=== PATIENT | male | born 1990 | race Caucasian/White ===

== ENCOUNTER 2017-02-12 07:59 | Inpatient (IN) | payer BC, OTHER ==
[~2017-02-12] VITALS: Ht 188 cm; Wt 153.3 kg
--- NOTE | 2017-02-12 18:14 | NUR ---
INTAKE ASSESSMENT 26 year old male. Patient is alert and orientated time 4, stable and able to ambulate. Vital signs are BP 179/96 HR 73 TEMP 96.5f R 18. Patient states he has no allergies. Patient takes no medications at home, no medications brought with him to treatment. No history of seizure, patient has fallen often in the past when intoxicated. patient consumed ETOH and Cocaine today around 1400. Patient able to answer questions appropriately. He states, "he want to be a better person and ready for detox". This is his first time in a treatment center. Addendum: 02/12/17 at 1832 by ALMA SHELTON RN Patient states he is here to detox from: 1. ETOH 2. cocaine 3. marijuana 4. xanax 5. Lorazepam 6. Diazepam
[2017-02-12 18:23] VITALS: BP 179/96
--- NOTE | 2017-02-12 19:00 | NUR ---
ADMISSION NOTE : Patient is a 26 year old male admitted on 02/12/17 at 1900 for ETOH, Benzodiazepines, and Opiate Dependency. Patient is a Full Code, is NKA, is on Regular diet, is on Fall and Seizures Precautions. Patient reports History of Falls "two weeks ago". Patient does not have Primary Care Provider. Weight: 338 Lbs, Height: 6'2, CIWA 12, COWS 11. Patient complains of increased level of anxiety, agitation, nervousness, visible hands tremor, body ache, muscle spasm, flashes. Patient was able to provide Urine Drug Screening Test (positive for cocaine and cannabinoids) see chart for result. Patient refused History of Seizures. Upon admission BP:1 65/111, HR: 87, T: 98.3, RA SpO2: 100%, RR:19, respirations is even and unlabored; Lung Sounds are clear bilaterally. Bowel Sounds is active in all 4 quadrants. Last BM was on 02/12/17. Skin is intact, warm and dry at touch. Patient reports suicidal attempt history. No SI/HI at this moment. Substance Abuse History is as follow : 1. ETOH "Whisky during last 10 years, since 2006, drinking every day: 3 gallons a week. Last time drank of 750 ml of Whisky on 02/12/17 at 1410". 2. Xanax " PO 1 bar Three Times a Week uses during one year". 3. Lorazepam "PO 0.5 mg x4 or 2 mg Every Day during one year". 4. Diazepam "PO 5 mg Every Day during one year". 5. Cocaine "nares and sometimes smoke 5 lines Every Day during 3 years. Last dose taken 5 lines on 02/12/17 at 1300". 6. Marijuana "Smoke 2,5 grams every day during last 10 years. Last time smoked 1 grams on 02/12/17". Patient denies history of smoking. Past Medical History : HTN, Anxiety, Depression, Substance abuse. Tx History : Patient report that he is "first time at Detox now". "Boss helped to me to get to [facility]". Family History: Patient reports that his father is alcoholic. Doctor Madhu Stone MD aware for patient's condition. Waiting MD's Order. Patient is oriented to her room and unit, education provided on Hepatitis C, Substance abuse, Falls and Seizures. Patient did not brought his home medications. Safety measures in place. Call light within reach, bed is locked and is on lowest position with padded side rails x2. Will continue to monitor closely and offer help. Addendum: 02/13/17 at 0328 by WALLY TAVERA RN Patient has NKA, is on Regular Diet, and is Full Code status. Patient is on Seizure and Fall Precautions. Addendum: 02/13/17 at 0547 by WALLY TAVERA RN Patient reports suicidal attempt history 5 years ago. No SI/HI at this moment.
[2017-02-12 20:00] VITALS: BP 162/115
[2017-02-12] MEDS ORDERED: THIAMINE HCL 200 MG/2 ML VIAL IM ONE (21:00)
[2017-02-12] MEDS ORDERED: ONDANSETRON ODT 4 MG TAB.RAPDIS SL PRN (21:00)
[2017-02-12] MEDS ORDERED: LOPERAMIDE HCL 2 MG CAPSULE PO PRN ×2 (21:00)
[2017-02-12] MEDS ORDERED: MIRALAX 17 GM POWD.PACK PO PRN (21:00)
[2017-02-12] MEDS ORDERED: MAGNESIUM HYDROXIDE 30 ML LIQUID UDC PO PRN (21:00)
[2017-02-12] MEDS ORDERED: ACETAMINOPHEN 325 MG TABLET PO PRN (21:00)
[2017-02-12] MEDS ORDERED: LORAZEPAM 2 MG/1 ML VIAL IM PRN (21:00)
[2017-02-12] MEDS ORDERED: LORAZEPAM 1 MG TABLET PO PRN ×2 (21:00)
[2017-02-12] MEDS ORDERED: PROMETHAZINE HCL 25 MG/1 ML VIAL IM PRN (21:00)
[2017-02-12] MEDS ORDERED: IBUPROFEN 400 MG TABLET PO PRN (21:00)
[2017-02-12] MEDS ORDERED: MAG HYDROX/AL HYDROX/SIMETH 30 ML LIQUID UDC PO PRN (21:00)
[2017-02-12] MEDS ORDERED: DICYCLOMINE HCL 20 MG TABLET PO PRN (21:00)
[2017-02-12] MEDS ORDERED: diphenhydrAMINE 50 MG CAPSULE PO PRN (21:00)
[2017-02-12 21:08] LABS: *AMPHETAMINE, URINE NEGATIVE (NEGATIVE); *BARBITURATE, URINE NEGATIVE (NEGATIVE); *CANNABINOID, URINE POSITIVE (NEGATIVE); *COCCAINE, URINE POSITIVE (NEGATIVE); *OPIATE, URINE NEGATIVE (NEGATIVE); *PHENCYCLIDINE SCREEN,URINE NEGATIVE (NEGATIVE)
[2017-02-12] MEDS: CLONIDINE HCL 0.1 MG TABLET PO PRN (21:31)
--- NOTE | 2017-02-12 21:32 | NUR ---
PRN ATIVAN 1 MG 1 TAB PO, PRN BENADRYL 50 MG 1 TAB PO, PRN CLONIDINE 0,1 MG PO ADMINISTRATION Patient c/o increased anxiety, tremors, and insomnia. Assessment done. BP:165/116, HR: 95, RR:20; RA O2 SAT 100%. Generalized, body aches Pain level "6/10". CIWA 12, COWS 11. Patient complains of increased level of anxiety, agitation, nervousness, visible hands tremor, body ache, muscle spasm, flashes. PRN Ativan 1 mg 1 tab PO, PRN Benadryl 50 mg 1 tab PO, and PRN Clonidine 0.1 mg 1 tab PO administrated as ordered with full glass of water. Patient tolerated well. Safety measures in place. Call light within reach, bed is locked and is on lowest position with padded side rails x2 . Will continue to monitor closely and offer help. Addendum: 02/13/17 at 0508 by WALLY TAVERA RN PRN Benadryl 50 mg 1 caps PO.
[2017-02-12] MEDS ORDERED: CLONIDINE HCL 0.1 MG TABLET ONE (21:37)
[2017-02-12] MEDS ORDERED: THIAMINE HCL 200 MG/2 ML VIAL ONE (21:37)
[2017-02-12] MEDS ORDERED: LORAZEPAM 1 MG TABLET ONE (21:38)
[2017-02-12] MEDS ORDERED: diphenhydrAMINE 50 MG CAPSULE ONE (21:38)
--- NOTE | 2017-02-12 22:32 | NUR ---
RE-ASSESSMENT Patient is lying down in the bed with eyes closed. BP: 139/89, HR: 87, RR 17. PRN Medications were effective. Safety measures in place. Call light within reach, bed is locked and is on lowest position with padded side rails x2 . Will continue to monitor closely and offer help.
[2017-02-12 23:30] LABS: BASOPHILS % (AUTO) 0.5 % (0.0-2.0); EOSINOPHILS # (AUTO) 0.1 K/uL (0.0-0.7); EOSINOPHILS % (AUTO) 1.6 % (0.0-7.0); HEMATOCRIT 44.4 % (40-50); HEMOGLOBIN 15.4 G/DL (14.0-18.0); LYMPHOCYTES # (AUTO) 2.3 K/UL (0.8-4.8); LYMPHOCYTES % (AUTO) 25.8 % (20.5-51.5); MEAN CORPUSCULAR HEMOGLOBIN 31.3 UUG (27.0-31.0); MEAN CORPUSCULAR HGB CONC 35 g/dL (32.0-37.0); MEAN CORPUSCULAR VOLUME 90.1 FL (82.0-92.0); MONOCYTES # (AUTO) 0.6 K/UL (0.1-1.30); NEUTROPHILS # (AUTO) 6.1 K/UL (1.8-8.9); NEUTROPHILS % (AUTO) 65.1 % (38.5-71.5); PLATELET COUNT (AUTO) 224 K/UL (150-450); RED BLOOD CELL COUNT(AUTO) 4.93 MIL/UL (4.7-6.1); WHITE BLOOD COUNT (AUTO) 9.1 K/UL (4.0-11.2)
[2017-02-12 23:32] LABS: ETHANOL < 3 MG/DL (0-0)
[2017-02-12 23:34] LABS: ALANINE AMINOTRANSFERASE 81 U/L (16-63); ALKALINE PHOSPHATASE 76 U/L (50-136); AMYLASE 58 U/L (25-115); ASPARTATE AMINOTRANSFERASE 36 U/L (15-37); BILIRUBIN,TOTAL 0.4 mg/dL (0.2-1.0); CARBON DIOXIDE 29 mmol/L (21-32); CHLORIDE 103 mmol/L (98-107); GLUCOSE 99 mg/dL (74-106); LIPASE 98 U/L (73-393); MAGNESIUM 1.9 mg/dL (1.8-2.4); POTASSIUM 3.7 mmol/L (3.5-5.1); TOTAL PROTEIN, SERUM 7.3 g/dL (6.4-8.2); UREA NITROGEN, BLOOD 14 mg/dL (7-18)
[2017-02-12 23:45] LABS: THYROID STIMULATING HORMONE 1.963 mIU/mL (0.358-3.740)
[2017-02-13] VITALS: BP 126/80
[2017-02-13 04:00] VITALS: BP 130/73
--- NOTE | 2017-02-13 07:30 | NUR ---
Start of shift note; Patient is AOX4. Patient is a 26 year male admitted on 02/12/17 for ETOH and Benzo dependence. Patient reported history of anxiety, depression, HTN. Patient to start 5 day Ativan taper today. NKA, regular diet and on full code status. Patient is on fall and seizure precaution. Bed in lowest position, tawnya light within reach. Will continue to monitor patient.
--- NOTE | 2017-02-13 07:31 | NUR ---
END OF SHIFT NOTE : Patient is a 26 year old male admitted on 02/12/17 at 1900 for ETOH, Benzodiazepines, and Opioid dependency. Patient has NKA, is on Regular Diet, and is Full Code status. Patient is on Seizure and Fall Precautions. Patient denies History of Seizures. Patient reports History of Falls "two weeks ago". Patient reports suicidal attempt history 5 years ago. No SI/HI at this moment. Last CIWA at 0400 decreased from 5 to 3. 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 Urine Drug Screening Test (positive for cocaine and cannabinoids) see chart for result. Patient refused History of Seizures. Last VS at 0400: BP: 130/73, HR: 60, T: 97.5, RA SpO2: 95%, RR:16. Pain level "0/10". Respirations is even and unlabored. Skin is intact, warm and dry at touch. PRN Ativan 1 mg 1 tab PO, PRN Benadryl 50 mg 1 caps PO, and PRN Clonidine 0.1 mg 1 tab PO, administrated last caustic cresylate shift superintendent were effective. Patient slept 7 hours 15 minutes, intake 700 ml, voided x1. Patient remains compliant with treatment plan, medications, and diet regimen. Patient's educated of relaxation skills. Encourage to fluids intake, as tolerated. Encourage to attend activities and therapy groups regularly. All needs met. Safety measures in the place. Call light within reach, bed in the lowest position, and locked, padded bed rails up x2. Will continue to monitor closely.
[2017-02-13 08:00] VITALS: BP 124/79
[2017-02-13] MEDS: MULTIVITAMINS,THERAPEUTIC TABLET PO SCH (08:26)
[2017-02-13] MEDS: THIAMINE HCL 100 MG TABLET PO SCH (08:26)
[2017-02-13] MEDS: LORAZEPAM 1 MG TABLET PO SCH ×4 (08:26→20:59)
[2017-02-13] MEDS: FOLIC ACID 1 MG TABLET PO SCH (08:26)
[2017-02-13] MEDS ORDERED: TUBERCULIN,PURIF.PROT.DERIV. 5 TU/0.1 ML TEST ID ONE (09:00)
[2017-02-13] MEDS: GABAPENTIN 100 MG CAPSULE PO SCH ×3 (09:30→17:14)
[2017-02-13 12:00] VITALS: BP 133/73
[2017-02-13 16:00] VITALS: BP 123/68
--- NOTE | 2017-02-13 18:19 | NUR ---
End of shift note; Patient is AOX4. Patient is a 26 year male admitted on 02/12/17 for ETOH and Benzo dependence. Patient reported history of anxiety, depression, HTN. Patient to start 5 day Ativan taper today. NKA, regular diet and on full code status. Patient's last CIWA score is 5. Patient is on fall and seizure precaution. Patient remained compliant with treatment plan. Medications were effective in reducing withdrawal symptoms. Bed in lowest position, tawnya light within reach. Met all needs.
--- NOTE | 2017-02-13 19:15 | NUR ---
START OF SHIFT NOTE : Patient is a 26 year old male admitted on 02/12/17 at 1900 for ETOH, Benzodiazepines, and Opioid dependency. Patient has NKA, is on Regular Diet, and is Full Code status. Patient is on Seizure and Fall Precautions. Patient denies History of Seizures. Patient reports suicidal attempt history 5 years ago. No SI/HI at this moment. Last CIWA=5 at 16:00 . Patient presented with the following withdrawal s/s: anxiety, nervousness, body ache 2/10. Respirations is even and unlabored. Skin is intact, warm and dry at touch. Patient remains compliant with treatment plan, medications, and diet regimen. Patient's educated of relaxation skills. Encourage to fluids intake, as tolerated. Encourage to attend activities and therapy groups regularly. All needs met. Safety measures in the place. Call light within reach, bed in the lowest position, and locked, padded bed rails up x2. Will continue to monitor closely.
[2017-02-13 20:00] VITALS: BP 139/85
--- NOTE | 2017-02-14 06:38 | NUR ---
END OF SHIFT NOTE : Patient is a 26 year old male admitted on 02/12/17 at 1900 for ETOH, Benzodiazepines, and Opioid dependency. Patient has NKA, is on Regular Diet, and is Full Code status. Patient is on Seizure and Fall Precautions. Patient denies History of Seizures. Patient reports suicidal attempt history 5 years ago. No SI/HI at this moment. Skin is intact, warm and dry at touch. Patient's educated of relaxation skills. Encourage to fluids intake, as tolerated. Encourage to attend activities and therapy groups regularly. Pt remains compliant with the treatment plan. No PRNs were given during my shift. V/S remain WNL. RR=16, even and unlabored, lungs clear upon auscultation, abdomen soft and non- distended. Pt denies nausea, vomiting and diarrhea. LAST CIWA=3 at 0400 , VZMMSO=830 ml, voided x 2, slept 5 hours. All needs met. Safety measures in the place. Call light within reach, bed in the lowest position, and locked, padded bed rails up x2. Will continue to monitor closely.
[2017-02-14 08:00] VITALS: BP 143/82
--- NOTE | 2017-02-14 08:05 | NUR ---
START OF SHIFT: RECEIVED PT A/O X 4. HE PRESENTS WITH GUARDED AFFECT AND ANXIOUS MOOD. HE REPORTS SOME ANXIETY. CIWA 2. ATIVAN TAPER IN PROGRESS. PT STATES HE WILL BE ATTENDING GROUPS TODAY. ENCOURAGED INCREASED FLUIDS TO ASSIST IN FACILITATING DETOX PROCESS. WILL CONTINUE TO MONITOR AND OFFER SUPPORT.
[2017-02-14] MEDS: THIAMINE HCL 100 MG TABLET PO SCH (09:53)
[2017-02-14] MEDS: FOLIC ACID 1 MG TABLET PO SCH (09:53)
[2017-02-14] MEDS: LORAZEPAM 1 MG TABLET PO SCH ×3 (09:53→21:11)
[2017-02-14] MEDS: MULTIVITAMINS,THERAPEUTIC TABLET PO SCH (09:53)
[2017-02-14] MEDS: GABAPENTIN 100 MG CAPSULE PO SCH ×3 (09:54→17:30)
[2017-02-14 11:07] LABS: HEPATITIS B SURFACE AG Negative (Negative)
[2017-02-14 12:00] VITALS: BP 132/79
[2017-02-14 16:00] VITALS: BP 148/90
--- NOTE | 2017-02-14 18:31 | NUR ---
END OF SHIFT: PT CONTINUES ON ATIVAN TAPER. LAST CIWA 2. HE ATTENDED GROUPS AND ACTIVITIES. HE STATES THE DETOX MEDS ARE EFFECTIVE AND HE DID NOT RECEIVE PRNS TODAY. HE WAS COMPLIANT WITH INCREASED FLUIDS AND WAS PLEASANT AND COOPERATIVE. WILL PASS SHIFT REPORT TO ONCOMING NIGHT NURSE.
--- NOTE | 2017-02-14 19:15 | NUR ---
START OF SHIFT NOTE : Patient is a 26 year old male admitted on 02/12/17 at 1900 for ETOH, Benzodiazepines, and Opioid dependency. Patient has NKA, is on Regular Diet, and is Full Code status. Patient is on Seizure and Fall Precautions. Patient denies History of Seizures. Patient reports suicidal attempt history 5 years ago. No SI/HI at this moment. Patient presented with the following withdrawal s/s: anxiety, nervousness. Respirations is even and unlabored. Skin is intact, warm and dry at touch. Patient remains compliant with treatment plan, medications, and diet regimen. Patient's educated of relaxation skills. Encourage to fluids intake, as tolerated. Encourage to attend activities and therapy groups regularly. All needs met. Safety measures in the place. Call light within reach, bed in the lowest position, and locked, padded bed rails up x2. Will continue to monitor closely.
[2017-02-14 20:00] VITALS: BP 157/92
--- NOTE | 2017-02-15 06:42 | NUR ---
END OF SHIFT NOTE : Patient is a 26 year old male admitted on 02/12/17 at 1900 for ETOH, Benzodiazepines, and Opioid dependency. Patient has NKA, is on Regular Diet, and is Full Code status. Patient is on Seizure and Fall Precautions. Patient denies History of Seizures. Patient reports suicidal attempt history 5 years ago. No SI/HI at this moment. Patient presented with the following withdrawal s/s: anxiety, nervousness. Respirations is even and unlabored. Skin is intact, warm and dry at touch. Patient remains compliant with treatment plan, medications, and diet regimen. Encourage to fluids intake, as tolerated Pt remains compliant with the treatment plan. No PRNs were given during my shift. V/S remain WNL. RR=16, even and unlabored, lungs clear upon auscultation, abdomen soft and non- distended. Pt denies nausea, vomiting and diarrhea. LAST CIWA=2 at 0400 , INTAKE=1,300 ml, voided x 2, slept 7 hours. All needs met. Safety measures in the place. Call light within reach, bed in the lowest position, and locked, padded bed rails up x2. Will continue to monitor closely.
[2017-02-15 08:00] VITALS: BP 121/55
--- NOTE | 2017-02-15 08:20 | NUR ---
START OF SHIFT: RECEIVED PT A/O X 4. HE PRESENTS WITH ANXIOUS MOOD AND CONGRUENT AFFECT. CIWA 2. ATIVAN TAPER IN PROGRESS TO MANAGE S/S OF W/D. HE C/O ANXIETY AND STATES HE JUST FEELS UNSETTLED ABOUT HIS DISCHARGE PLAN AND HIS JOB. ENCOURAGED PT TO DISCUSS CONCERNS WITH INJECTION MOLDING OPERATOR. ENCOURAGED GROUP ATTENDANCE TO IMPROVE COPING SKILLS AND PREVENT RELAPSE.
[2017-02-15] MEDS: GABAPENTIN 100 MG CAPSULE PO SCH ×3 (10:02→17:10)
[2017-02-15] MEDS: LORAZEPAM 1 MG TABLET PO SCH ×4 (10:03→20:42)
[2017-02-15] MEDS: MULTIVITAMINS,THERAPEUTIC TABLET PO SCH (10:03)
[2017-02-15] MEDS: FOLIC ACID 1 MG TABLET PO SCH (10:03)
[2017-02-15] MEDS: THIAMINE HCL 100 MG TABLET PO SCH (10:03)
[2017-02-15] MEDS ORDERED: HYDROXYZINE PAMOATE 25 MG CAPSULE PO PRN (11:45)
[2017-02-15] MEDS: CLONIDINE HCL 0.1 MG TABLET PO PRN (11:49)
[2017-02-15 12:00] VITALS: BP 133/89
--- NOTE | 2017-02-15 12:00 | NUR ---
CLONIDINE PRN ADMINISTERED FOR REPORTED RESTLESSNESS AND ANXIETY. PT STATES ANOTHER PT SAID SOME THINGS THAT TRIGGERED HIS ANGER IN GROUP. OFFERED SUPPORT. WILL MONITOR EFFECTIVENESS OF MED.
--- NOTE | 2017-02-15 13:00 | NUR ---
PT STATES THE CLONIDINE HELPED HIM AND HE FEELS BETTER.
[2017-02-15 16:00] VITALS: BP 143/93
--- NOTE | 2017-02-15 18:41 | NUR ---
END OF SHIFT: PT CONTINUES ON ATIVAN TAPER. LAST CIWA 1. HE SOME ATTENDED GROUPS AND ACTIVITIES AND BECAME ANGRY IN GROUP WHEN ANOTHER PT SAID SOMETHING TO HIM HE DIDN'T LIKE. HE WAS HITTING THE FLOOR WITH HIS FISTS IN HIS ROOM. OFFERED SUPPORT. PRN CLONIDINE GIVEN FOR RESTLESSNESS AND ANXIETY. MOTRIN GIVEN FOR PAIN TO HIS HANDS. PRNS EFFECTIVE. HE WAS COMPLIANT WITH INCREASED FLUIDS AND WAS POLITE. WILL PASS SHIFT REPORT TO ONCOMING NIGHT NURSE.
--- NOTE | 2017-02-15 19:15 | NUR ---
START OF SHIFT : Patient is a 26 year old male admitted on 02/12/17 at 1900 for ETOH, Benzodiazepines, and Opioid dependency. Patient has NKA, is on Regular Diet, and is Full Code status. Patient is on Seizure and Fall Precautions. Patient denies History of Seizures. Patient reports suicidal attempt history 5 years ago. No SI/HI at this moment. Patient presented with the following withdrawal s/s: anxiety, nervousness. Respirations is even and unlabored. Skin is intact, warm and dry at touch. Patient remains compliant with treatment plan, medications, and diet regimen. Patient's educated of relaxation skills. Encourage to fluids intake, as tolerated. Encourage to attend activities and therapy groups regularly. Pt. complains of fists pain 2/10. All needs met. Safety measures in the place. Call light within reach, bed in the lowest position, and locked, padded bed rails up x2. Will continue to monitor closely.
[2017-02-15 20:00] VITALS: BP 140/83
[2017-02-15] MEDS: CLONIDINE HCL 0.1 MG TABLET PO SCH (20:42)
--- NOTE | 2017-02-16 06:54 | NUR ---
END OF SHIFT : Patient is a 26 year old male admitted on 02/12/17 at 1900 for ETOH, Benzodiazepines, and Opioid dependency. Patient has NKA, is on Regular Diet, and is Full Code status. Patient is on Seizure and Fall Precautions. Patient denies History of Seizures. Patient reports suicidal attempt history 5 years ago. No SI/HI at this moment. Patient presented with the following withdrawal s/s: anxiety, nervousness. Respirations is even and unlabored. Skin is intact, warm and dry at touch. Patient remains compliant with treatment plan, medications, and diet regimen. Patient's educated of relaxation skills. Encourage to fluids intake, as tolerated. Encourage to attend activities and therapy groups regularly. Pt remains compliant with the treatment plan. No PRNs were given during my shift. V/S remain WNL. RR=16, even and unlabored, lungs clear upon auscultation, abdomen soft and non- distended. Pt denies nausea, vomiting and diarrhea. LAST CIWA= 1 at 0400 , INTAKE=1,650 ml, voided x 2, slept 7 hours. All needs met. Safety measures in the place. Call light within reach, bed in the lowest position, and locked, padded bed rails up x2. Will continue to monitor closely.
[2017-02-16 08:00] VITALS: BP 124/72
--- NOTE | 2017-02-16 08:15 | NUR ---
START OF SHIFT: RECEIVED PT A/O X 4. HE COMPLAINS OF SOME ANXIETY AND MILD IRRITABILITY. CIWA 1 ATIVAN TAPER IN PROGRESS. ENCOURAGED GROUP ATTENDANCE TO IMPROVE COPING SKILLS AND PREVENT RELAPSE. ENCOURAGED INCREASED FLUIDS TO ASIST IN FACILITATING DETOX PROCESS. WILL CONTINUE TO MONITOR.
[2017-02-16] MEDS: THIAMINE HCL 100 MG TABLET PO SCH (09:01)
[2017-02-16] MEDS: CLONIDINE HCL 0.1 MG TABLET PO SCH ×2 (09:01→20:39)
[2017-02-16] MEDS: LORAZEPAM 1 MG TABLET PO SCH ×3 (09:02→20:38)
[2017-02-16] MEDS: FOLIC ACID 1 MG TABLET PO SCH (09:02)
[2017-02-16] MEDS: MULTIVITAMINS,THERAPEUTIC TABLET PO SCH (09:02)
[2017-02-16] MEDS: GABAPENTIN 100 MG CAPSULE PO SCH ×2 (09:02→13:08)
[2017-02-16 12:00] VITALS: BP 122/83
--- NOTE | 2017-02-16 14:29 | NUR ---
Clinician encouraged client to attend the group at 3:30 today. Client said he would think about it.
[2017-02-16 16:00] VITALS: BP 136/83
[2017-02-16] MEDS ORDERED: GABAPENTIN 100 MG CAPSULE PO SCH (17:00)
[2017-02-16] MEDS: GABAPENTIN 300 MG CAPSULE PO SCH (17:23)
--- NOTE | 2017-02-16 18:54 | NUR ---
END OF SHIFT: PT CONTINUES ON ATIVAN TAPER. LAST CIWA 1.HE REPORTS MILD ANXIETY. HE ATTENDED GROUPS AND ACTIVITIES . HE STATED THE DETOX MEDS WERE EFFECTIVE AND NO PRNS ADMINISTERED THIS SHIFT. HE REMAINS PLEASANT AND COMPLIANT WITH TREATMENT PLAN. WILL PASS SHIFT REPORT TO ONCOMING NIGHT NURSE.
--- NOTE | 2017-02-16 19:30 | NUR ---
START OF SHIFT Patient is a 26 year old male admitted for ETOH / Benzodiazepines dependency. Patient has NKA, is on Regular Diet, and is Full Code status. Patient is on Seizure and Fall Precautions. Patient denies History of Seizures. Continues on Ativan taper as ordered. No A/R noted. Encouraged PO fluids intake, as tolerated. Last CIWA 1. All needs met. Safety measures in the place. Call light within reach, bed in the lowest position, and locked, padded bed rails up x2. Will continue to monitor closely.
[2017-02-16 20:00] VITALS: BP 135/72
--- NOTE | 2017-02-17 | NUR ---
CIWA DEFERRED AND VS REFUSED. PT IS ASLEEP. PT REQUESTED NOT TO BE WOKEN UP IF HE IS SLEEPING,HAS DIFFICULTY GOING BACK TO SLEEP. BED LOCKED AND IN LOWEST POSITION,SIDE RAILS UP X 2. CALL MOE IN REACH.WILL MONITOR.
--- NOTE | 2017-02-17 04:00 | NUR ---
CIWA DEFERRED AND VS REFUSED. PT REMAINS ASLEEP.NO S/S OD DISTRESS NOTED. BED LOCKED AND IN LOWEST POSITION,SIDE RAILS UP X 2. CALL MOE IN REACH.WILL MONITOR.
--- NOTE | 2017-02-17 06:42 | NUR ---
END OF SHIFT Patient is a 26 year old male admitted for ETOH / Benzodiazepines dependency. Patient has NKA, is on Regular Diet, and is Full Code status. Patient is on Seizure and Fall Precautions. Patient denies History of Seizures. Continues on Ativan taper as ordered. No A/R noted. Encouraged PO fluids intake, as tolerated. Last CIWA 1. All needs met.No PRN meds given last night;slept 9 hrs,fluid intake was 1300 mls;voided x 1,BM X 1.Safety measures in the place. Call light within reach, bed in the lowest position, and locked, padded bed rails up x2. Will continue to monitor closely.
--- NOTE | 2017-02-17 07:39 | NUR ---
BEGINNING OF SHIFT Patient endorsement report received from shift coordinator nurse, all pertinent information discussed. Patient is a 26 year old female admitted on 02/12/2017, Patient With ongoing 5 day Ativan taper as ordered and is scheduled to begin day 4 of taper this morning. Patient with last ciwa score of: 1, as per shift coordinator. Patient received no PRNs, during shift coordinator, medications were effective, patient slept for 9 hours. Patient received in room, awake alert and oriented x4, educated regarding plan of care and medication regimen for the day with good verbal understanding. Safety measures in place. call light kept with in reach, will continue to monitor closely.
[2017-02-17 08:34] VITALS: BP 125/60
[2017-02-17] MEDS: FOLIC ACID 1 MG TABLET PO SCH (08:35)
[2017-02-17] MEDS: GABAPENTIN 300 MG CAPSULE PO SCH ×3 (08:35→17:00)
[2017-02-17] MEDS: THIAMINE HCL 100 MG TABLET PO SCH (08:35)
[2017-02-17] MEDS: LORAZEPAM 1 MG TABLET PO SCH ×2 (08:35→20:56)
[2017-02-17] MEDS: MULTIVITAMINS,THERAPEUTIC TABLET PO SCH (08:35)
[2017-02-17] MEDS: CLONIDINE HCL 0.1 MG TABLET PO SCH ×2 (08:35→20:57)
[2017-02-17 12:30] VITALS: BP 109/60
[2017-02-17 17:53] VITALS: BP 121/72
--- NOTE | 2017-02-17 18:49 | NUR ---
END OF SHIFT Patient alert and oriented x4, vital signs were stable during shift. patient compliant with therapeutic plan of care. 0900 Assessment patient presented with: anxiety with ciwa score of: 4; 1300 assessment patient presented with: mild anxiety with ciwa score of: 1; 1700 assessment patient presented with mild anxiety with ciwa score of: 1. Patient received no PRN medications during shift. Patient encouraged to attend group therapies/sessions to learn new coping skills to prevent relapse. patient denies any SI/HI. safety measures in place. call light kept with in reach. patient endorsed to shift mgr nurse, all pertinent information discussed. will continue to monitor closely.
--- NOTE | 2017-02-17 19:30 | NUR ---
START OF SHIFT Patient is a 26 year old male admitted for ETOH / Benzodiazepines dependency. Patient has NKA, is on Regular Diet, and is Full Code status. Patient is on Seizure and Fall Precautions. Patient denies History of Seizures. Continues on Ativan taper as ordered. No A/R noted.Received in stable condition. Encouraged PO fluids intake, as tolerated. Last CIWA 1. Safety measures in the place. Call light within reach, bed in the lowest position, and locked, padded bed rails up x2. Will continue to monitor closely.
[2017-02-17 20:00] VITALS: BP 150/86
--- NOTE | 2017-02-18 | NUR ---
CIWA DEFERRED AND VS REFUSED. PT IS SLEEPING PEACEFULLY IN BED.NO S/SOF DISTRESS NOTED. BED LOCKED AND IN LOWEST POSITION,SIDE RAILS UP X 2. CALL MOE IN REACH.WILL BE MONITORED.
--- NOTE | 2017-02-18 06:50 | NUR ---
END OF SHIFT Patient is a 26 year old male admitted for ETOH / Benzodiazepines dependency. Patient has NKA, is on Regular Diet, and is Full Code status. Patient is on Seizure and Fall Precautions. Patient denies History of Seizures. Continues on Ativan taper as ordered. No A/R noted. Encouraged PO fluids intake, as tolerated. Last CIWA 1. All needs met.No PRN meds given last night;slept 5 hrs,fluid intake was 1250 mls;voided x 2,BM X 1. . Safety measures in the place. Call light within reach, bed in the lowest position, and locked, padded bed rails up x2. Will continue to monitor closely.
[2017-02-18 08:00] VITALS: BP 151/86
--- NOTE | 2017-02-18 08:00 | NUR ---
START OF SHIFT: RECEIVED PT A/O X 4. HE COMPLAINS OF MILD ANXIETY AND STATES THE DETOX MEDS ARE EFFECTIVE. HE STATES HE SLEPT WELL LAST NIGHT HIS AFFECT IS GUARDED AND MOOD ANXIOUS. CIWA 1 ATIVAN TAPER IN PROGRESS. ENCOURAGED GROUP ATTENDANCE TO IMPROVE COPING SKILLS AND PREVENT RELAPSE. ENCOURAGED INCREASED FLUIDS TO ASSIST IN FACILITATING DETOX PROCESS. WILL CONTINUE TO MONITOR AND PROVIDE SAFE AND SUPPORTIVE ENVIRONMENT.
[2017-02-18] MEDS: MULTIVITAMINS,THERAPEUTIC TABLET PO SCH (08:21)
[2017-02-18] MEDS: GABAPENTIN 300 MG CAPSULE PO SCH ×3 (08:21→16:14)
[2017-02-18] MEDS: FOLIC ACID 1 MG TABLET PO SCH (08:21)
[2017-02-18] MEDS: CLONIDINE HCL 0.1 MG TABLET PO SCH ×2 (08:21→21:00)
[2017-02-18] MEDS: THIAMINE HCL 100 MG TABLET PO SCH (08:22)
[2017-02-18 12:00] VITALS: BP 130/82
--- NOTE | 2017-02-18 12:01 | NUR ---
ENDORSEMENT GIVEN TO PRODUCTION PLANNER.
--- NOTE | 2017-02-18 12:05 | NUR ---
Endorsement received; Patient is AOX4. Patient is a 26 year male admitted on 02/12/17 for ETOH and Benzo dependence. Patient reported history of anxiety, depression, HTN. Patient to start 5 day Ativan taper today. NKA, regular diet and on full code status. Patient is on fall and seizure precaution. Bed in lowest position, tawnya light within reach. Will continue to monitor patient.
[2017-02-18] MEDS ORDERED: GABA-534 PO (13:13)
[2017-02-18] MEDS ORDERED: DIPH50CA37 PO (13:13)
[2017-02-18] MEDS ORDERED: HYDR-3895 PO (13:13)
[2017-02-18 16:00] VITALS: BP 129/83
--- NOTE | 2017-02-18 18:38 | NUR ---
End of shift note; Patient is AOX4. Patient remained compliant with treatment plan. Medication were effective in reducing withdrawal symptoms. Patient's last CIWA score is 1 at 1600. Patient is medically cleared for discharge tomorrow. All safety measures secured. Met all needs.
--- NOTE | 2017-02-18 19:15 | NUR ---
START OF SHIFT Received 26 year old male patient admitted on 02/12/17 for ETOH, Xanax, Ativan And Valium dependency. Pt is full code with NKA. He reports history of anxiety, depression, and HTN. Pt reports ETOH (whiskey) 750mL daily for 10 years. Last dose was 750 mL on 02/12/17. Xanax PO 1 bar three times a week. Ativan 0.5 mg PO daily for 3 years. and Valium PO 5 mg daily for one year. Pt placed on 5 day Ativan taper started on 02/13/17 and tolerating well. Per endorsement, pt is scheduled to be DC tomorrow to [facility]. Pt is alert and oriented x4, breathing is even and unlabored. Safety measures in place. Will continue to monitor.
[2017-02-18 20:00] VITALS: BP 155/95
[2017-02-18 21:23] LABS: *AMPHETAMINE, URINE NEGATIVE (NEGATIVE); *BARBITURATE, URINE NEGATIVE (NEGATIVE); *CANNABINOID, URINE POSITIVE (NEGATIVE); *COCCAINE, URINE NEGATIVE (NEGATIVE); *OPIATE, URINE NEGATIVE (NEGATIVE); *PHENCYCLIDINE SCREEN,URINE NEGATIVE (NEGATIVE)
--- NOTE | 2017-02-19 | NUR ---
VITALS REFUSED/CIWA DEFERRED Pt refused 0000 vitals. CIWA deferred d/t pt is lying in bed with eyes closed noted to be asleep. Respirations 16, breathing is even and unlabored. Safety measures in place. Will continue to monitor.
--- NOTE | 2017-02-19 04:00 | NUR ---
VITALS REFUSED/CIWA DEFERRED Pt refused 0400 vitals. CIWA deferred d/t pt is lying in bed with eyes closed noted to be asleep. Respirations 16, breathing is even and unlabored. Safety measures in place. Will continue to monitor.
--- NOTE | 2017-02-19 07:10 | NUR ---
END OF SHIFT Pt is a 26 year old male patient admitted on 02/12/17 for ETOH, Xanax, Ativan And Valium dependency. Pt is full code with NKA. He reports history of anxiety, depression, and HTN. Pt completed his 5 day Ativan taper started on 02/13/17 and tolerated well. He is scheduled to [facility] today [facility]. He did not receive or request PRN medications. He slept a total of 8 hrs, Intake: 1855mL, Void: x4, BM: 0. CIWA:1. Pt remains alert and oriented x4, breathing is even and unlabored. Safety measures in place. Will endorse to oncoming shift.
--- NOTE | 2017-02-19 07:37 | NUR ---
BEGINNING OF SHIFT Patient endorsement report received from overnight cashier nurse, all pertinent information discussed. Patient is a 26 year old female admitted on 02/12/2017, Patient completed tapers, and is scheduled for discharge today to morning side. Patient with last ciwa score of: 1, as per overnight cashier. Patient received no PRNs, during overnight cashier, medications were effective, patient slept for 8 hours. Patient received in room, awake alert and oriented x4, educated regarding plan of care and medication regimen for the day with good verbal understanding. Safety measures in place. call light kept with in reach, will continue to monitor closely.
[2017-02-19 08:06] VITALS: BP 130/77
[2017-02-19 08:22] VITALS: BP 130/77
[2017-02-19] MEDS: GABAPENTIN 300 MG CAPSULE PO SCH (08:22)
[2017-02-19] MEDS: CLONIDINE HCL 0.1 MG TABLET PO SCH (08:22)
[2017-02-19] MEDS: THIAMINE HCL 100 MG TABLET PO SCH (08:22)
[2017-02-19] MEDS: MULTIVITAMINS,THERAPEUTIC TABLET PO SCH (08:22)
[2017-02-19] MEDS: FOLIC ACID 1 MG TABLET PO SCH (08:22)
--- NOTE | 2017-02-19 10:02 | NUR ---
DISCHARGE patient discharged and off the unit at 0959, prior to discharge patient was provided with education and teaching regarding all discharge instructions. patient discharged to morning side. Noted self motivated towards sobriety. Patients vital signs were stable. no s/sx of withdrawal last ciwa score of: 0. Discharge instructions, and prescriptions were placed in patients personal duffel bag. Patient off the unit at 0959.
== END 2017-02-19 09:59 | disposition home or self-care (01) | DRG 895 ==
LOC: SRC 17:24
PROVIDERS: ADMIT Internal Medicine; ATTEND Internal Medicine
PROC: HZ2ZZZZ Detoxification Services for Substance Abuse Treatment (ICD-10-PCS; principal; 2017-02-12)
PROC: HZ41ZZZ Group Counseling for Substance Abuse Treatment, Behavioral (ICD-10-PCS; 2017-02-13)
DX: F10.230 Alcohol dependence with withdrawal, uncomplicated (principal); Z68.41 Body mass index [BMI] 40.0-44.9, adult; K70.10 Alcoholic hepatitis without ascites; F13.230 Sedative, hypnotic or anxiolytic dependence with withdrawal, uncomplicated; Y90.9 Presence of alcohol in blood, level not specified; Z91.5 Personal history of self-harm; F41.1 Generalized anxiety disorder; F90.9 Attention-deficit hyperactivity disorder, unspecified type; E66.9 Obesity, unspecified; F12.90 Cannabis use, unspecified, uncomplicated; F14.10 Cocaine abuse, uncomplicated; F41.0 Panic disorder [episodic paroxysmal anxiety]; I15.9 Secondary hypertension, unspecified; Z81.1 Family history of alcohol abuse and dependence; Z83.3 Family history of diabetes mellitus; Z82.49 Family history of ischemic heart disease and other diseases of the circulatory system; Z81.8 Family history of other mental and behavioral disorders; F31.9 Bipolar disorder, unspecified
CPT/HCPCS: 36415; 70030-TC; 80307; 80349; 80353; 83690; 83735; 84443; 85025; 86580; 86592; 86705; 86803; 87340; 87806; A4663; G0480; J3411; Q0163